=== PATIENT | male | born 2005 | race Native Hawaiian/Other Pacific Islander ===

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

== ENCOUNTER 2023-10-02 13:44 | Emergency (ER) | payer BC, OTHER ==
[~2023-10-02] VITALS: Ht 182.9 cm; Wt 115.7 kg
[2023-10-02 14:16] LABS: BILIRUBIN, URINE NEGATIVE (negative); BLOOD/HGB, URINE NEGATIVE (Negative); KETONE, URINE NEGATIVE (Negative); LEUK ESTERASE, URINE NEGATIVE (negative); NITRITE, URINE NEGATIVE (negative)
[2023-10-02 14:51] LABS: BASOPHILS 0.6 % (0-2); EOSINOPHILS 1.5 % (0-6); HEMATOCRIT 43.1 % (35.0-50.0); HEMOGLOBIN 14.3 g/dL (12.0-18.0); LYMPHOCYTES 7.9 % (24-44); MCH 27.2 (27-36); MCHC 33.1 g/dl (30-36); MCV 82.3 fl (81-99); MONOCYTES 11.6 % (0-12); NEUTROPHILS 78.4 % (39-80); PLATELET COUNT 339 K/uL (140-440); RBC 5.24 M/ul (4.3-5.7); RDW 14.5 (10.5-15.0)
[2023-10-02 14:56] LABS: INFLUENZA B NAA NEGATIVE (NEGATIVE); RESPIRATORY SYNCYTIAL VIR NAA NEGATIVE (NEGATIVE)
[2023-10-02 15:11] LABS: ALBUMIN 4.1 g/dL (3.4-5.0); ALBUMIN/GLOBULIN RATIO 1.08 (1.1-2.4); ANION GAP 13.6 (7-21); BILIRUBIN, TOTAL 0.4 ng/dL (0.2-1.0); BUN/CREATININE RATIO 9.47 (6.0-28.6); CALCIUM 9.1 mg/dL (8.5-10.1); CREATININE, SERUM 0.95 mg/dL (0.70-1.30); MAGNESIUM 1.8 mg/dL (1.8-2.4); POTASSIUM 3.6 mmol/L (3.5-5.1); PROTEIN, TOTAL 7.9 g/dL (6.4-8.2)
[2023-10-02] MEDS ORDERED: ONDANSETRON ODT8 MG PO (15:24)
[2023-10-02 15:37] VITALS: BP 108/67
== END 2023-10-02 15:37 | disposition home or self-care (01) ==
LOC: ED 13:44
PROVIDERS: Emergency Medicine
DX: U07.1 COVID-19 (principal); Z88.0 Allergy status to penicillin
CPT/HCPCS: 36415; 80053; 81003; 83735; 85025; 87502; 96360; 99284-25; C9803; J7030; U0002